=== PATIENT | female | born 1955 | race Caucasian/White ===

== ENCOUNTER 2017-04-15 18:49 | Emergency (ER) | payer OTHER ==
[~2017-04-15] VITALS: Ht 165.1 cm; Wt 111.1 kg
[~2017-04-15 18:49] MED LIST: CIPROFLOXACIN500 MG PO; FISH OIL 1,0001 EAC2 PO; FLAGYL500 MG PO; GLUCOPHAGE1000 MG PO; LASIX40 MG PO; LISINOPRIL-HCT1 EAC2 PO; NIACIN 500 MG500 MG PO; VITAMIN D5000 UNIT PO
--- NOTE | 2017-04-15 21:07 | Diagnostic Imaging Report ---
History:Blurred vision Comparison studies:None Technique: Axial images were obtained from the skull base to the vertex. Coronal and sagittal images reconstructed from the axial data. Intravenous contrast: None Findings: Scalp/skull: No abnormalities. Extra-axial spaces: No masses. No fluid collections. Brain sulci: Mildly prominent. Ventricles: Mild compensatory dilatation. No hydrocephalus. Parenchyma: Subtle hypodensities in the supratentorial white matter are small vessel ischemic changes. No masses, hemorrhage, acute or chronic cortical vascular insults. Sellar/suprasellar region: No abnormalities. Craniocervical junction: Patent foramen magnum. No Chiari one malformation. Incidental findings: Atherosclerotic calcifications in the carotid siphons and vertebral arteries. Impression: No acute abnormalities. Chronic findings: 1. Mild age related generalized volume loss. 2. Mild supratentorial white matter small vessel ischemic changes. Signed by: Dr. Ric Dunn M.D. on 04/15/2017 9:04 PM
== END 2017-04-15 22:49 | disposition home or self-care (01) ==
LOC: ER 18:49
DX: G43.109 Migraine with aura, not intractable, without status migrainosus (principal); I10 Essential (primary) hypertension; E11.9 Type 2 diabetes mellitus without complications; Z87.19 Personal history of other diseases of the digestive system
CPT/HCPCS: 70450; 99283

== ENCOUNTER 2018-11-08 16:06 | Observation (INO) | payer MEDICARE ==
[~2018-11-08] VITALS: Ht 165.1 cm; Wt 108.0 kg
[2018-11-08 16:10] VITALS: BP 119/70
[2018-11-08 16:50] VITALS: BP 119/70
--- NOTE | 2018-11-08 17:00 | NUR ---
Pt was direct admit from Dr. Aguilar and Dr. Gio Haji office. Pt has been complaining of increasing SOB over the last week. Pt is aox4 and able to verbalize needs. Denies any pain. SOB mostly with exertion. Dr. Aguilar notified of pt arrival and states he will see pt later today.
[2018-11-08 17:14] LABS: BASOPHILS # (AUTO) 0.1 (0.0-0.1); BASOPHILS % 0.5 % (0.0-1.0); EOSINOPHILS # (AUTO) 0.1 (0.0-0.4); EOSINOPHILS % 0.9 % (0.0-6.0); HEMATOCRIT 48.3 % (34.2-44.1); HEMOGLOBIN 15.8 g/dL (12.0-16.0); LYMPHOCYTES # (AUTO) 3.7 (1.0-3.2); LYMPHOCYTES % 23.9 % (18.0-39.1); MEAN CORPUSCULAR HEMOGLOBIN 27.9 pg (28-32); MEAN CORPUSCULAR HGB CONC 32.7 g/dL (31-35); MEAN CORPUSCULAR VOLUME 85.2 fL (81-99); MONOCYTES % 6.2 % (4.4-11.3); NEUTROPHILS # (AUTO) 10.4 (2.1-6.9); NEUTROPHILS % 67.5 % (38.7-80.0); PLATELET COUNT 350 x10e3/uL (140-360); RED BLOOD COUNT 5.67 x10e6/uL (3.6-5.1); RED CELL DISTRIBUTION WIDTH 13.7 % (11.7-14.4)
[2018-11-08 17:29] LABS: ALBUMIN 3.6 g/dL (3.5-5.0); ALBUMIN/GLOBULIN RATIO 0.9 (0.8-2.0); ANION GAP 17.6 mmol/L (8-16); CALCIUM 9.9 mg/dL (8.4-10.2); CREATININE, SERUM 1.1 mg/dL (0.57-1.11); POTASSIUM 3.6 mmol/L (3.5-5.1)
[2018-11-08] MEDS ORDERED: ATORVASTATIN CA10 MG PO (17:38)
[2018-11-08] MEDS ORDERED: GLIMEPIRIDE2 MG PO (17:38)
[2018-11-08] MEDS ORDERED: MONTELUKAST SOD10 MG PO (17:38)
[2018-11-08] MEDS ORDERED: LEVOCETIRIZINE D5 MG PO (17:38)
[2018-11-08] MEDS ORDERED: BIOTIN2500 MCG PO (17:38)
[2018-11-08 17:51] LABS: FREE THYROXINE INDEX 2.7578 (1.4-3.8); THYROID STIMULATING HORMONE 4.996 uIU/mL (0.350-4.940)
[2018-11-08] MEDS ORDERED: DEXTROSE 50% SYRINGE 50 ML IV PRN (18:45)
--- NOTE | 2018-11-08 19:25 | Diagnostic Imaging Report ---
EXAM: CT Chest WITH contrast 11/08/2018 4:35 PM INDICATION: Pulmonary embolism. Shortness of breath and chest pain with high probability of pulmonary embolism. COMPARISON: None TECHNIQUE: Chest was scanned utilizing a multidetector helical scanner from the lung apex through the level of the adrenal glands without administration of IV contrast. Coronal and sagittal reformations were obtained. Pulmonary embolism protocol was performed. IV CONTRAST: 100 mL of Isovue-320 RADIATION DOSE: Total DLP: 565.47 mGy*cm Estimated effective dose: (DLP x 0.014 x size factor) mSv COMPLICATIONS: None FINDINGS: LINES/ TUBES: None. LUNGS AND AIRWAYS: Evaluation for PE mildly limited due to beam hardening artifact, however, no significant filling defects to the resolved segmental level. Mild low attenuation posterior left lower lobe segmental arteries as seen on image 61 series 2 with presence of enhancement distally particularly represents artifact. The lungs are unremarkable. Airways are normal. PLEURA: The pleural spaces are clear. HEART AND MEDIASTINUM: The thyroid gland is normal. No mediastinal, hilar or axillary lymphadenopathy. The heart is normal in size.. There is no pericardial effusion. The main pulmonary artery measures 3.4 cm in diameter. Mild calcifications of the aortic arch. UPPER ABDOMEN: Limited non-contrast views of the upper abdomen show no abnormality within the visualized liver, spleen, pancreas, or kidneys. The adrenal glands are normal. BONES: There are degenerative changes in the thoracic spine. SOFT TISSUES: Unremarkable. IMPRESSION: 1. Evaluation for PE mildly limited due to beam hardening artifact, however, no significant filling defects to the resolved segmental level 2. Enlarged central pulmonary arteries may reflect pulmonary hypertension. Signed by: Dr. Marci Tirado M.D. on 11/08/2018 7:22 PM
[2018-11-08] MEDS ORDERED: ENOXAPARIN SODIUM INJ 100 MG/ML SYR SC ONE (19:35)
--- NOTE | 2018-11-08 19:45 | NUR ---
PATIENT RECEIVED. PATIENT IS AAOX3. RESP EVEN AND UNLABORED. NO ACUTE DISTRESS NOTICED. PATIENT DENIES OF ANY PAIN OR DISCOMFORT. FAMILY AT BED SIDE. CALL LIGHT WITHIN REACH. INSTRUCT TO CALL FOR ASSISTANCE. BED LOW/LOCKED. BED ALARM IS ON. CONTINUE TO MONITOR CLOSELY
[2018-11-08 20:00] VITALS: BP 116/70
[2018-11-08 21:00] VITALS: BP 116/70
[2018-11-08] MEDS: INSULIN LISPRO 100 UNIT/1 ML 3ML VIAL SQ SCH (21:35)
--- NOTE | 2018-11-08 23:22 | History and Physical ---
HISTORY OF PRESENT ILLNESS: The patient is admitted to room 211. The patient is a 63-year-old female with a history of diabetes mellitus, history of hyperlipidemia, history of hypertension, and multiple allergies, was in usual state of health until about 2 days of admission. The patient showed up in the office with some shortness of breath. Chest x-rays, blood protocol were done. The patient was found to have no pathological changes in any of the laboratory values and/or chest x-ray. The patient was sent for cardiac studies to Dr. Haji's office, but today this morning, the patient's shortness of breath increased out of intensity and the patient was admitted to the hospital for ruling out pulmonary embolism. Saturations have been normal at my office at 98% on room air. REVIEW OF SYSTEMS: The patient has shortness of breath. Positive for some chest pain which is retrosternal. No nausea, vomiting, or diarrhea. No constipation. No rectal bleeding. No hematochezia. No hematemesis. The patient denies any weakness, any joint tenderness. No diarrhea. No nausea. No excessive thirst and no heat intolerance, no sore throat or swollen glands. PAST SURGICAL HISTORY: History of hysterectomy. FAMILY HISTORY: History of diabetes, hypertension, heart disease in father. Mother with heart disease. MEDICATIONS: She takes atorvastatin 10 mg daily, Biotin every day. Lasix 40 mg daily, glimepiride 2 mg daily, levocetirizine dihydrochloride 5 mg daily. Lisinopril-hydrochlorothiazide 10/12.5 mg daily, and metformin 1000 mg daily. The patient is also on montelukast 10 mg daily. ALLERGIES: CIPRO. PHYSICAL EXAMINATION: GENERAL: The patient is alert and oriented x3. VITAL SIGNS: Temperature is 96, pulse is 65, respiration 22, blood pressure is 119/70. The patient's pulse oximeter 98%. HEENT: Normocephalic, atraumatic. Pupils are reactive to light and accommodation. CVS: S1 and S2 normal. Regular rate and rhythm. NECK: Supple. No JVD. LUNGS: Good air entry into lung tsai. ABDOMEN: Soft, nontender, nondistended. EXTREMITIES: No clubbing, no cyanosis and/or no edema. The patient's sensory exam is intact. ASSESSMENT: Shortness of breath, rule out pulmonary embolism. The patient will be given 1 mg/kg of Lovenox right now, sent for CTA. The patient will be restarted on her medications except metformin. We will start her on an insulin sliding scale and restart her lisinopril-hydrochlorothiazide. The patient's white count has been seen to be elevated. Laboratory values show white count 15,000, no left shift present too. We will start her also on doxycycline 100 mg IV and continue monitoring the patient. Further recommendation per clinical course. We will continue to monitor the patient. MD PATSY Rodriguez/MODL /[id number]
[2018-11-09] VITALS (7 sets, daily range): BP systolic 94–119; BP diastolic 53–73
[2018-11-09 05:21] LABS: BASOPHILS # (AUTO) 0.1 (0.0-0.1); BASOPHILS % 0.5 % (0.0-1.0); EOSINOPHILS # (AUTO) 0.1 (0.0-0.4); EOSINOPHILS % 0.9 % (0.0-6.0); HEMATOCRIT 46.1 % (34.2-44.1); HEMOGLOBIN 15.2 g/dL (12.0-16.0); LYMPHOCYTES # (AUTO) 3.2 (1.0-3.2); LYMPHOCYTES % 25.2 % (18.0-39.1); MEAN CORPUSCULAR HEMOGLOBIN 27.9 pg (28-32); MEAN CORPUSCULAR VOLUME 84.7 fL (81-99); MONOCYTES # (AUTO) 0.9 (0.2-0.8); MONOCYTES % 7.1 % (4.4-11.3); NEUTROPHILS # (AUTO) 8.4 (2.1-6.9); NEUTROPHILS % 65.4 % (38.7-80.0); PLATELET COUNT 308 x10e3/uL (140-360); RED BLOOD COUNT 5.44 x10e6/uL (3.6-5.1); RED CELL DISTRIBUTION WIDTH 13.6 % (11.7-14.4)
[2018-11-09 05:36] LABS: ANION GAP 15.7 mmol/L (8-16); CALCIUM 9.5 mg/dL (8.4-10.2); CREATININE, SERUM 0.94 mg/dL (0.57-1.11); POTASSIUM 3.7 mmol/L (3.5-5.1)
[2018-11-09] MEDS ORDERED: HYDROCHLOROTHIAZIDE 25 MG TAB PO SCH (09:00)
[2018-11-09] MEDS ORDERED: LISINOPRIL 10 MG TAB PO SCH (09:00)
[2018-11-09] MEDS: ATORVASTATIN 10 MG TAB PO SCH (09:34)
[2018-11-09] MEDS: FUROSEMIDE 20 MG TAB PO SCH (09:34)
[2018-11-09] MEDS: INSULIN LISPRO 100 UNIT/1 ML 3ML VIAL SQ SCH ×4 (09:36→21:15)
--- NOTE | 2018-11-09 10:40 | Progress Note ---
DATE: SUBJECTIVE: This is a 63-year-old female, who comes in with shortness of breath. The patient is admitted to the hospital for acute shortness of breath, rule out pulmonary embolism. A CT scan was done, angio yesterday and the patient did not show any signs of pulmonary embolism. However, pulmonary hypertension was noted. Complains of chest pain still, some shortness of breath. The patient is resting. No nausea, vomiting, diarrhea, and had a good night. OBJECTIVE: VITAL SIGNS: Temperature is 97.4, pulse 80, respirations of 19, blood pressure is 112/69, pulse oximetry of 98%. HEENT: Normocephalic, atraumatic. Pupils are reactive to light and accommodation. CVS: S1 and S2 normal. Regular rate and rhythm. LUNGS: Clear to auscultation bilaterally. ABDOMEN: Nontender, nondistended. EXTREMITIES: No clubbing. No cyanosis and/or no edema. LABORATORY DATA: Today's white count is 12.80, hemoglobin of 15.2, hematocrit of 46.1, platelet count of 308, and neutrophil count is down to 8.4. IMAGING STUDIES: CT as reported, shows no signs of pulmonary embolism. Enlarged central pulmonary arteries may reflect pulmonary hypertension. ASSESSMENT: 1. A 63-year-old female with acute onset of shortness of breath. 2. Ruled out pulmonary embolism. 3. Pulmonary hypertension, will need an echocardiogram, which has been ordered. 4. Elevated leukocytosis, probably secondary to steroid use. 5. Continue with home medications for hypertension and followup echocardiogram to be done today. MD PARUL RodriguezJ/MODL /[id number]
--- NOTE | 2018-11-09 12:45 | Consultation ---
DATE OF CONSULTATION: Cardiology Consultation CHIEF COMPLAINT: The patient is a 63-year-old with shortness of breath. HISTORY OF PRESENT ILLNESS: The patient is a 63-year-old, who came to my office with severe shortness of breath. The patient said she could not walk across the room. The patient is having severe fatigue. The patient was subsequently admitted for further evaluation. PAST MEDICAL HISTORY: Significant for: 1. Hypertension. 2. Diabetes mellitus. 3. Hypercholesterolemia. 4. Previous hysterectomy. MEDICATIONS: At home include metformin, atorvastatin, furosemide, and lisinopril. SOCIAL HISTORY: The patient does not drink and does not smoke. FAMILY HISTORY: The patient has a family history of diabetes and hypertension. PHYSICAL EXAMINATION: GENERAL: The patient is a well-developed, well-nourished female, in no obvious distress. VITAL SIGNS: Included temperature of 98.8, blood pressure of 100/60, and pulse of 74. HEAD, EARS, EYES, NOSE, AND THROAT: The patient's cranium was normocephalic and atraumatic. Extraocular muscles were intact. Sclerae were anicteric. Pupils were equal, round, and reactive to light. There is no pallor or cyanosis of the oral mucosa. There is no erythema or edema of the throat. NECK: Supple. No jugular venous distention. There were no carotid bruits. CHEST: Clear to auscultation and percussion. CARDIAC: Demonstrated normal S1 and S2 with a short 2/6 systolic murmur. ABDOMEN: Demonstrated good bowel sounds. No tenderness and no masses. EXTREMITIES: There was no clubbing, no cyanosis, and no edema. NEUROLOGIC: The patient was alert and oriented x3. Cranial nerves II through XII were intact. Motor strength was +5/+5 in all limbs. DIAGNOSTIC DATA: The patient's EKG demonstrated normal sinus rhythm with some possible right ventricular hypertrophy. IMPRESSION: The patient is a 63-year-old female with worsening dyspnea. The patient had a CAT scan done, which demonstrated no pulmonary embolism, but did appear to be dilatation of the pulmonary arteries, concerning for pulmonary hypertension. RECOMMENDATIONS: As follows: 1. The patient will require an echocardiogram to evaluate the possible pulmonary hypertension. 2. An arterial blood gas will need to be drawn. 3. If the echocardiogram demonstrates pulmonary hypertension, then the patient will require right and left heart catheterization. MD ASHLEY Carrera/DAISY /[id number] cc: Vahe Aguilar MD
--- NOTE | 2018-11-09 21:15 | NUR ---
OBTAINED CONSENT FORM FOR HEART CATH
[2018-11-10] VITALS (9 sets, daily range): BP systolic 108–147; BP diastolic 53–87
--- NOTE | 2018-11-10 07:00 | NUR ---
RCD PT AT BED PT IS ALERT AND ORIENTED AND PT RESTING ON BED IV PATENT BY SALINE FLUSH PATENT PT NPO FOR PROCEDURE BED LOW AND LOCKED CALL LIGHT IN REACH
[2018-11-10] MEDS: INSULIN LISPRO 100 UNIT/1 ML 3ML VIAL SQ SCH ×3 (07:30→16:30)
--- NOTE | 2018-11-10 08:05 | Progress Note ---
DATE: SUBJECTIVE: The patient is a 63-year-old female with acute shortness of breath, came in. Pulmonary hypertension was diagnosed on echocardiogram. The patient is scheduled for cardiac cath today. No chest pain. Positive for shortness of breath on exertion and also on rest. No nausea, vomiting, diarrhea and no chest pain. OBJECTIVE: VITAL SIGNS: Temperature is 96.6, pulse of 65, respirations 18, blood pressure is 108/53. HEENT: Normocephalic, atraumatic. Pupils are reactive to light and accommodation. CVS: S1 and S2 normal. Regular rate and rhythm. LUNGS: Clear to auscultation bilaterally. ABDOMEN: Nontender, nondistended. EXTREMITIES: No clubbing, no cyanosis, no edema. LABORATORY DATA: The patient's white count was 12.8 yesterday. Chemistries showed BUN of 36, creatinine 0.94, glucoses have been running in the 130s to 150s. ASSESSMENT: This is a 63-year-old lady with: 1. Pulmonary hypertension, scheduled for cardiac cath today. 2. Ruled out pulmonary embolism. 3. Shortness of breath. 4. Diabetes. 5. Leukocytosis. 6. Hypertension. PLAN: Continue the home medications. The patient is scheduled for cardiac cath. Further recommendation per clinical course. MD PATSY Rodriguez/BEATRISL /[id number]
[2018-11-10] MEDS ORDERED: MIDAZOLAM HCL 2 MG/2 ML VIAL ONE (12:48)
[2018-11-10] MEDS ORDERED: FENTANYL CITRATE/PF 100MCG/2 ML INJ ONE (12:49)
[2018-11-10] MEDS ORDERED: LIDOCAINE HCL 2% LOCAL 20 ML VIAL ONE (12:49)
[2018-11-10] MEDS ORDERED: IOPAMIDOL 370 MG/ML 200 ML INFUS..BTL INJ ONE (12:51)
[2018-11-10] MEDS ORDERED: HEPARIN SOD/SOD CHLORIDE 2,000 ML ONE (12:51)
[2018-11-10] MEDS ORDERED: SODIUM CHLORIDE 0.9% 1000ML 1,000 ML ONE (12:51)
--- NOTE | 2018-11-10 13:09 | NUR ---
PT WENT TO PROCEDURE IN SAFE CONDITION
--- NOTE | 2018-11-10 14:20 | NUR ---
PT BACK AFTER PROCEDURE PT IS ALERT AND ORIENTED VITALS CHECKED PT RESTING ON BED NO SIGNS OF ANY DISTRESS NOTED NO SIGNS OF BLEEDING ON RT GROIN PT NEED 2 MORE HRS BED REST EXPLAINED THE PT SHE SAID SHE UNDERSTOOD IT
[2018-11-10] MEDS: FUROSEMIDE 20 MG TAB PO SCH (15:00)
[2018-11-10] MEDS: ATORVASTATIN 10 MG TAB PO SCH (15:00)
--- NOTE | 2018-11-10 16:30 | NUR ---
pt resting on bed no signs of any bleeding pt voided ac to dr violeta miramontes pt can go home paged dr coles to get discharge order
--- NOTE | 2018-11-10 17:32 | NUR ---
DR BARTLETT RETURNED THE CALL AND GOT DISCHARGE ORDER
--- NOTE | 2018-11-10 18:25 | NUR ---
PT WENT HOME IN SAFE CONDITION WITH HER
--- NOTE | 2018-11-10 20:59 | Operative Report ---
DATE OF PROCEDURE: SURGEON: Rell Haji MD PROCEDURES: Right and left heart catheterization. PREOPERATIVE DIAGNOSIS: Pulmonary hypertension. POSTOPERATIVE DIAGNOSIS: Shortness of breath. COMPLICATIONS: None. ANESTHESIA: Versed, fentanyl, and lidocaine. TECHNIQUE: The right groin was draped and prepped in the usual fashion. The area was anesthetized with lidocaine. Standard Seldinger technique was used to place a 6-Kisw[place]ili sheath into the right femoral artery without difficulty. Standard Seldinger technique was used to place a 7-Kisw[place]ili sheath into the right femoral vein without difficulty. A [place]Prasanna catheter was placed through the right femoral vein into the pulmonary artery and used to measure right heart pressures. A JL4 catheter was then used to selectively engage the left coronary artery. A 3DRC catheter was used to selectively engage the right coronary artery and a pigtail catheter was used to perform a left ventriculogram. There were no complications. RESULTS: As follows: The right heart pressures were as follows: 1. Pulmonary capillary wedge pressure was 8. The pulmonary artery pressure systolic was 25 with a diastolic pulmonary artery pressure of 10. The right ventricular pressure was 25/5. The right atrial pressure was 5. Results of the left heart catheterization are follows: 1. There was a normal left main trunk. 2. There was a large left anterior descending artery, which gave rise to a medium-sized diagonal branch. There was a minimal disease in the left anterior descending artery and diagonal branch. 3. There was a medium-sized AV circumflex artery, which gave rise to a large bifurcating obtuse marginal branch. There was minimal disease in the circumflex system. 4. There was a large dominant right coronary artery with minimal disease. 5. There was normal left ventricular size and function with an ejection fraction of 60%. CONCLUSION: The patient has a normal coronary arteries with normal left ventricular size and function. There is no evidence of pulmonary hypertension. Rell Haji MD DSH/MODL /[id number] cc: Vahe Aguilar MD
== END 2018-11-10 18:23 | disposition home or self-care (01) ==
LOC: MED/SURG2 16:06
PROVIDERS: ADMIT Family Medicine; ATTEND Family Medicine
DX: R06.02 Shortness of breath (principal); I10 Essential (primary) hypertension; E11.9 Type 2 diabetes mellitus without complications; E78.00 Pure hypercholesterolemia, unspecified; Z83.3 Family history of diabetes mellitus; Z82.49 Family history of ischemic heart disease and other diseases of the circulatory system; Z81.8 Family history of other mental and behavioral disorders; Z88.1 Allergy status to other antibiotic agents; Z79.84 Long term (current) use of oral hypoglycemic drugs; D72.829 Elevated white blood cell count, unspecified
CPT/HCPCS: 36415 ×3; 71260; 80048; 80053; 82948 ×3; 84436; 84443; 84479; 85025 ×2; 93005; 93306; 93460; C1751; C1760; C1766; C1769 ×2; G0378 ×3; J1650; J2001; J2250; J3010; J7030; Q9967